=== PATIENT | male | born 1990 | race Caucasian/White ===

== ENCOUNTER 2019-01-29 18:49 | Emergency (ER) | payer SELFPAY ==
[~2019-01-29] VITALS: Ht 177.8 cm; Wt 68.0 kg
[2019-01-29 19:04] VITALS: BP 123/81
--- NOTE | 2019-01-29 19:08 | NUR ---
ROSALINA LUX SI FOR A COUPLE WEEKS WITH PLAN TO CUT HIS THROAT. PT WAS DISCHARGED FROM [facility] TODAY FOR SAME. WAS AT [facility] FOR 3 DAYS. PT STATES HE WAS NOT ON A HOLD. STATES HE CAME FOR HELP BECAUSE HE PROMISED HIS 'BABY SISTER' THAT HE WOULD NOT GO THROUGH WITH IT. PT STATES HE FEELS LIKE [facility] WAS NOT ABLE TO HELP HIM AND HE CAME HERE TO SEE IF WE CAN HELP HIM. PT STATES IF HE FEELS LIKE WE CANNOT HELP HIM HE WILL JUST GO OUT AND DO IT. PT HAD KNIFE WITH HIM WHEN HE CAME IN AND IT IS WITH SECURITY NOW. PT STATES HE HAS TRIED TO KILLE HIMSELF AT LEAST 10 TIME THROUGH HANGING, OVERDOSING, CUTTING. LAST ATTEMPT WAS 6 YEARS AGO. PT BELONGING SECURED IN LOCKER. PT WITH SITTER AT DOORWAY FOR FREQUENT CHECKS. ROOM SECURED WITH GUARD GAITS IN THE DOWN POSITION.
[2019-01-29] MEDS ORDERED: PRAZ2CAP2 PO (19:21)
[2019-01-29 19:30] LABS: BASOPHILS # (AUTO) 0.03 x10^3/uL (0-0.1); BASOPHILS % (AUTO) 0 % (0-1); EOSINOPHILS # (AUTO) 0.11 x10^3/uL (0-0.4); EOSINOPHILS % (AUTO) 2 % (1-7); LYMPHOCYTES # (AUTO) 1.36 x10^3/uL (1-3.4); LYMPHOCYTES % (AUTO) 19 % (22-44); MD NO; MEAN CORPUSCULAR HEMOGLOBIN 32.5 pg (27.5-34.5); MEAN CORPUSCULAR HGB CONC 33.8 g/dL (33.2-36.2); MEAN CORPUSCULAR VOLUME 96.2 fL (81-97); MEAN PLATELET VOLUME 8.9 fL (7.4-10.4); MONOCYTES # (AUTO) 0.62 x10^3/uL (0.2-0.8); MONOCYTES % (AUTO) 9 % (2-9); NEUTROPHILS # (AUTO) 5.14 x10^3/uL (1.8-6.8); NEUTROPHILS % (AUTO) 71 % (42-75); PLATELET COUNT 203 x10^3/uL (130-400); RED BLOOD COUNT 5.11 x10^6/uL (4.38-5.82); RED CELL DISTRIBUTION WIDTH 13.1 % (9.4-14.8)
[2019-01-29 19:39] LABS: ALBUMIN 3.8 g/dL (3.4-5.0); ANION GAP 4 mmol/L (5-15); CHLORIDE 104 mmol/L (98-107)
[2019-01-29 19:40] LABS: SALICYLATE LEVEL < 1.7 mg/dL (2.8-20.0)
[2019-01-29 19:43] LABS: ALANINE AMINOTRANSFERASE 27 U/L (12-78); ALKALINE PHOSPHATASE 71 U/L (45-117); BILIRUBIN,TOTAL 0.4 mg/dL (0.2-1.0); TOTAL PROTEIN 7.7 g/dL (6.4-8.2)
[2019-01-29 20:27] LABS: AMPHETAMINE SCREEN, URINE Negative (Negative); BARBITURATE SCREEN, URINE Negative (Negative); BENZODIAZEPINE SCREEN, URINE Negative (Negative); CANNABINOID SCREEN, URINE Negative (Negative); COCAINE SCREEN, URINE Negative (Negative); METHADONE SCREEN, URINE Negative (Negative); OPIATE SCREEN, URINE Negative (Negative)
== END 2019-01-29 21:06 | disposition home or self-care (01) ==
LOC: ED 19:43
DX: F31.9 Bipolar disorder, unspecified (principal); R45.851 Suicidal ideations; F17.210 Nicotine dependence, cigarettes, uncomplicated
CPT/HCPCS: 36415; 80053; 80307; 85025; 99284

== ENCOUNTER 2019-01-29 21:17 | Emergency (ER) | payer SELFPAY ==
[~2019-01-29 21:17] MED LIST: PRAZ2CAP2 PO
== END 2019-01-29 21:43 ==
LOC: ED 21:38
DX: R45.851 Suicidal ideations (principal); Z53.21 Procedure and treatment not carried out due to patient leaving prior to being seen by health care provider